=== PATIENT | female | born 1975 | race Caucasian/White ===

== ENCOUNTER 2019-08-01 05:56 | Emergency (ER) | payer BC, OTHER ==
[~2019-08-01] VITALS: Ht 167.6 cm; Wt 60.8 kg
--- NOTE | 2019-08-01 06:35 | NUR ---
Patient left without being seen by ER physician. Dr. Mcneil made aware.
== END 2019-08-01 06:48 | disposition left against medical advice (07) ==
LOC: ER 06:02
DX: Z75.3 Unavailability and inaccessibility of health-care facilities (principal)
CPT/HCPCS: A4663

== ENCOUNTER 2019-10-19 01:43 | Emergency (ER) | payer BC ==
[~2019-10-19] VITALS: Ht 154.9 cm; Wt 61.2 kg
[~2019-10-19 01:43] MED LIST: [UNRECOGNIZED DRUG - CODE] PO
--- NOTE | 2019-10-19 01:54 | NUR ---
Dr. Leonard at bedside for MSE.
[2019-10-19 02:20] LABS: BASOPHILS # (AUTO) 0.1 K/uL (0.0-8.0); BASOPHILS % (AUTO) 0.6 % (0.0-2.0); EOSINOPHILS # (AUTO) 0.2 K/uL (0.0-0.7); EOSINOPHILS % (AUTO) 2.1 % (0.0-7.0); HEMATOCRIT 39.1 % (31.2-41.9); HEMOGLOBIN 13.2 g/dL (10.9-14.3); LYMPHOCYTES # (AUTO) 2.3 K/uL (20.0-40.0); LYMPHOCYTES % (AUTO) 27.5 % (20.5-51.5); MEAN CORPUSCULAR HEMOGLOBIN 32.1 uug (24.7-32.8); MEAN CORPUSCULAR HGB CONC 34 g/dL (32.3-35.6); MEAN CORPUSCULAR VOLUME 95.3 fL (75.5-95.3); MONOCYTES # (AUTO) 0.6 K/uL (2.0-10.0); MONOCYTES % (AUTO) 7.3 % (0.0-11.0); NEUTROPHILS # (AUTO) 5.3 K/uL (1.8-8.9); NEUTROPHILS % (AUTO) 62.5 % (38.5-71.5); PLATELET COUNT (AUTO) 261 K/uL (179-408); WHITE BLOOD COUNT (AUTO) 8.5 K/uL (3.8-11.8)
[2019-10-19 02:35] LABS: CREATININE 1.2 mg/dL (0.6-1.3); POTASSIUM 3.7 mmol/L (3.5-5.1)
[2019-10-19 03:04] LABS: *URINE HCG, QUAL NEGATIVE (NEGATIVE)
[2019-10-19 03:39] VITALS: BP 120/68
--- NOTE | 2019-10-19 03:39 | NUR ---
Patient discharged to home in stable condition. Written and verbal after care instructions given. Patient verbalizes understanding of instructions. Stressed follow up or return to ER for worsening s/s. Patient ambulated out of ER with steady gait, no acute signs of distress, VSS, all belongings taken.
== END 2019-10-19 03:40 | disposition home or self-care (01) ==
LOC: ER 01:45
DX: R42 Dizziness and giddiness (principal)
CPT/HCPCS: 36415; 84703; 85025; 93005; A4663